=== PATIENT | female | born 1970 | race Caucasian/White ===

== ENCOUNTER 2016-03-10 17:14 | Emergency (ER) | payer SELFPAY ==
[~2016-03-10] VITALS: Ht 162.6 cm; Wt 67.0 kg
[2016-03-10 17:25] VITALS: BP 135/103; PULSE 105; RESP 16; TEMP 98.6; O2SAT 99
[2016-03-10] MEDS ORDERED: IBUP800T23 PO (17:39)
[2016-03-10] MEDS ORDERED: ROBA750T PO (17:39)
[2016-03-10] MEDS ORDERED: ORPHENADRINE INJ 60 MG/2 ML AMP IM ONE (17:45)
[2016-03-10] MEDS ORDERED: KETOROLAC TROMETHAMINE 60 MG/2 ML (IM) VIAL IM ONE (17:45)
--- NOTE | 2016-03-10 17:48 | PD ---
HPI Chief Complaint: Musculoskeletal Complaint Time Seen by Provider: 17:40 Travel History International Travel<30 days: No Contact w/Intl Traveler<30days: No Traveled to known affect area: No History of Present Illness HPI 45-year-old female presents to the emergency room for evaluation of right-sided low back pain for the past 2 days. Patient states she twisted funny and exacerbated her pain. She has chronic low back pain due to arthritis and scoliosis. States pain is constant, dull ache that occasionally becomes a sharp , stabbing pain. It occasionally radiates to the left lower back. No radiation down the lower extremity. States the pain is so severe at times that causes her to have a tension headache. Headache is typical, gradual onset, wrapping around her head. She has been taking ibuprofen for pain without significant relief in symptoms. No saddle anesthesia, loss of bowel or bladder control, or lower extremity paresthesias Denies IV drug use, fevers, and weight loss. PFSH Past Medical History Depression: Yes Diminished Hearing: No Immunizations Current: No Pancreatitis: Yes (HOSPITALIZED LAST MONTH IN ICU AT [facility]) Tetanus Vaccination: > 5 Years Influenza Vaccination: No ?: Not LMP: TUBAL Tubal Ligation: Yes Past Surgical History Section: Yes Social History Alcohol Use: Yes ("ALCOHOLIC") Tobacco Use: Yes (1 PPD) Substance Use: Yes (ETOH ) Allergies-Medications (Allergen,Severity, Reaction): Coded Allergies: No Known Allergies (Unverified , 03/10/16) Reported Meds & Prescriptions Reported Meds & Active Scripts Active Ibuprofen 800 Mg Tab 800 Mg PO Q8H PRN Robaxin (Methocarbamol) 750 Mg Tab 750 Mg PO Q8HR Review of Systems Except as stated in HPI: all other systems reviewed are Neg Physical Exam Narrative GENERAL: Well-nourished, well-developed female in no acute distress. Afebrile. Ambulatory without antalgic gait. SKIN: Warm and dry. HEAD: Normocephalic. EYES: No scleral icterus. No injection or drainage. NECK: Supple, trachea midline. No JVD or lymphadenopathy. CARDIOVASCULAR: Regular rate and rhythm without murmurs, gallops, or rubs. RESPIRATORY: Breath sounds equal bilaterally. No accessory muscle use. BACK: No midline tenderness. No obvious deformity. No CVA tenderness. Mild tenderness to palpation of the right lower paraspinous musculature. 2+ patellar reflexes equal bilaterally. Data Data Last Documented VS Vital Signs Date Time Temp Pulse Resp B/P Pulse Ox O2 Delivery O2 Flow Rate FiO2 03/10/16 17:25 98.6 105 16 135/103 99 Orders Orphenadrine Inj (Norflex Inj) (03/10/16 17:45) Ketorolac Inj (Toradol Inj) (03/10/16 17:45) MDM Medical Decision Making Medical Screen Exam Complete: Yes Emergency Medical Condition: Yes Medical Record Reviewed: Yes Differential Diagnosis Muscle spasm versus strain versus fracture unlikely Narrative Course 45-year-old female with history of chronic back pain due to scoliosis and arthritis presents to the emergency room for evaluation of low back pain for the past 2 days. Patient states she twisted the wrong direction and has had pain since then. Denies any other trauma. Pain is causing a tension headache. Ibuprofen has not been improving symptoms. She is well-appearing. Ambulatory without antalgic gait. No focal neurological deficits. No midline tenderness. No red flag symptoms. No indication for emergent imaging at this time. Eforcse shows 2 prescriptions for Percocet from 2 different providers over the past 22 days. She will be given Toradol and Norflex in the emergency room and discharged with prescriptions for ibuprofen and Robaxin. Told to follow up with the primary care physician or return for worsening symptoms. She understands and agrees to plan. Diagnosis Primary Impression: Low back strain Qualified Code: S39.012A - Low back strain, initial encounter Referrals: Primary Care Physician Patient Instructions: General Instructions, Low Back Strain (ED) Additional Instructions: Rest and drink plenty of fluids. Take Robaxin as directed, as needed for pain. Take ibuprofen with food as directed, as needed for pain. Apply ice to the affected area for 20 minutes at a time, as needed for pain and swelling. Follow-up with a primary care physician. Return to the emergency room for worsening symptoms. Med/Other Pt SpecificInfo: Prescription(s) given Scripts Ibuprofen 800 Mg [id number] Mg PO Q8H PRN (Pain/Inflammation) #21 TAB Ref 0 Prov:Cristian Larios MD 03/10/16 Methocarbamol (Robaxin)750 Mg [id number] Mg PO Q8HR #21 TAB Ref 0 Prov:Cristian Larios MD 03/10/16 Disposition: 01 DISCHARGE HOME Condition: Stable Kenia Kern Mar 10, 2016 17:48
[2016-03-10 18:02] VITALS: BP 139/93
== END 2016-03-10 18:03 | disposition home or self-care (01) ==
LOC: PHEFT 17:14
DX: S39.012A Strain of muscle, fascia and tendon of lower back, initial encounter (principal); X50.1XXA Overexertion from prolonged static or awkward postures, initial encounter
CPT/HCPCS: 96372; 99283; J1885; J2360

== ENCOUNTER 2017-05-06 12:37 | Emergency (ER) | payer SELFPAY ==
[~2017-05-06] VITALS: Ht 162.6 cm; Wt 67.0 kg
[~2017-05-06 12:37] MED LIST: IBUP1TAB7 PO; ROBA750T PO
[2017-05-06 13:15] VITALS: BP 104/57; PULSE 88; RESP 16; TEMP 98.3; O2SAT 98
[2017-05-06] MEDS ORDERED: LORazepam 1 MG TAB PO ONE (14:15)
[2017-05-06] MEDS ORDERED: diphenhydrAMINE HCL 50 MG CAP PO ONE ×2 (14:15→21:30)
--- NOTE | 2017-05-06 14:16 | PD ---
HPI Chief Complaint: Psychiatric Symptoms Time Seen by Provider: 13:31 Travel History International Travel<30 days: No Contact w/Intl Traveler<30days: No Traveled to known affect area: No History of Present Illness HPI 46-year-old female brought in under the stephen act with history of polysubstance abuse. Patient is suicidal and threatening. She is uncooperative. Patient is noted to have a healing abscess to the right posterior shoulder from a "spider bite". Patient denies fever, chills, or other symptoms. She states she uses Percocet and alcohol. She states she has been on Bactrim for 2 days for her abscess. She states it was drained about 3 weeks ago. He continues to have some mild purulent drainage. She denies significant pain. She has no known drug allergies. [facility] Past Medical History Depression: Yes Diminished Hearing: No Medical other: Yes (Pt states she has a history of alcoholism and pancreatitis) Immunizations Current: No Pancreatitis: Yes (HOSPITALIZED LAST MONTH IN ICU AT [facility]) ?: Not Tubal Ligation: Yes Past Surgical History Section: Yes Social History Alcohol Use: Yes (4 years sober, started drinking again today 05/06/17) Tobacco Use: Yes (1 pack/day) Substance Use: Yes (ETOH ) Allergies-Medications (Allergen,Severity, Reaction): Coded Allergies: No Known Allergies (Unverified Allergy, Unknown, 05/06/17) Reported Meds & Prescriptions Reported Meds & Active Scripts Active Ibuprofen 800 Mg Tab 800 Mg PO Q8H PRN Robaxin (Methocarbamol) 750 Mg Tab 750 Mg PO Q8HR Review of Systems ROS Limitations: Uncooperative, Combative Except as stated in HPI: all other systems reviewed are Neg General / Constitutional: No: Fever, Chills Eyes: No: Visual changes HENT: No: Headaches Cardiovascular: No: Chest Pain or Discomfort Respiratory: No: Shortness of Breath Gastrointestinal: No: Abdominal Pain Genitourinary: No: Dysuria Musculoskeletal: No: Pain Skin: Positive Lesions (See history of present illness per), No Rash Neurologic: No: Weakness Psychiatric: No: Depression Endocrine: No: Polydipsia Hematologic/Lymphatic: No: Easy Bruising Physical Exam Exam Limitations: Uncooperative, Combative Narrative GENERAL: Patient appears in no obvious distress per SKIN: Warm and dry. Patient appears to have an old abscess to the right posterior shoulder which appears to be healing slowly with normal granulation tissue noted without significant warmth or erythema noted. There is small amount of purulent drainage noted. HEAD: Atraumatic. Normocephalic. EYES: Pupils equal and round. No scleral icterus. No injection or drainage. ENT: No nasal bleeding or discharge. Mucous membranes pink and moist. Pharynx is clear. Airways patent NECK: Trachea midline. Supple. CARDIOVASCULAR: Regular rate and rhythm. RESPIRATORY: No accessory muscle use. Clear to auscultation. Breath sounds equal bilaterally. MUSCULOSKELETAL: Extremities without clubbing, cyanosis, or edema. No obvious deformities. NEUROLOGICAL: Awake and alert. No obvious cranial nerve deficits. Motor grossly within normal limits. Five out of 5 muscle strength in the arms and legs. Normal speech. PSYCHIATRIC: Appropriate mood and affect; insight and judgment normal. Data Data Last Documented VS Vital Signs Date Time Temp Pulse Resp B/P (MAP) Pulse Ox O2 Delivery O2 Flow Rate FiO2 05/06/17 13:15 98.3 88 16 104/57 (73) 98 Room Air Orders Orders Complete Blood Count With Diff (05/06/17 13:30) Comprehensive Metabolic Panel (05/06/17 13:30) Thyroid Stimulating Hormone (05/06/17 13:30) Urinalysis - C+S If Indicated (05/06/17 13:30) Psych Screen (05/06/17 13:30) Drug Screen, Random Urine (05/06/17 13:30) Alcohol (Ethanol) (05/06/17 13:30) Lipase (05/06/17 13:30) Lorazepam (Ativan) (05/06/17 14:15) Diphenhydramine (Benadryl) (05/06/17 14:15) Sulfamet-Trimeth Ds 800-160 Mg (Bactrim (05/06/17 14:30) Diet Regular Basic (05/06/17 Dinner) Labs Laboratory Tests Test 05/06/17 14:40 05/06/17 17:10 White Blood Count 5.8 TH/MM3 Red Blood Count 4.20 MIL/MM3 Hemoglobin 13.2 GM/DL Hematocrit 38.0 % Mean Corpuscular Volume 90.6 FL Mean Corpuscular Hemoglobin 31.5 PG Mean Corpuscular Hemoglobin Concent 34.8 % Red Cell Distribution Width 13.5 % Platelet Count 185 TH/MM3 Mean Platelet Volume 8.4 FL Neutrophils (%) (Auto) 46.1 % Lymphocytes (%) (Auto) 43.0 % Monocytes (%) (Auto) 8.4 % Eosinophils (%) (Auto) 1.7 % Basophils (%) (Auto) 0.8 % Neutrophils # (Auto) 2.7 TH/MM3 Lymphocytes # (Auto) 2.5 TH/MM3 Monocytes # (Auto) 0.5 TH/MM3 Eosinophils # (Auto) 0.1 TH/MM3 Basophils # (Auto) 0.0 TH/MM3 CBC Comment DIFF FINAL Differential Comment Blood Urea Nitrogen 18 MG/DL Creatinine 0.55 MG/DL Random Glucose 99 MG/DL Total Protein 6.9 GM/DL Albumin 3.5 GM/DL Calcium Level 8.7 MG/DL Alkaline Phosphatase 66 U/L Aspartate Amino Transf (AST/SGOT) 38 U/L Alanine Aminotransferase (ALT/SGPT) 70 U/L Total Bilirubin 0.2 MG/DL Sodium Level 142 MEQ/L Potassium Level 3.1 MEQ/L Chloride Level 108 MEQ/L Carbon Dioxide Level 24.3 MEQ/L Anion Gap 10 MEQ/L Estimat Glomerular Filtration Rate 120 ML/MIN Lipase 53 U/L Thyroid Stimulating Hormone 3rd Gen 0.511 uIU/ML Ethyl Alcohol Level 182 MG/DL [facility] Medical Decision Making Medical Screen Exam Complete: Yes Emergency Medical Condition: Yes Differential Diagnosis Stephen act. Mood disorder. Polysubstance abuse. Suicidal ideation. Narrative Course Patient is medically stable at time of exam. Psychiatric labs ordered per protocol including lipase as the patient has a history of pancreatitis. Patient is given 1 mg lorazepam p.o. as well as 50 mg diphenhydramine p.o. Patient is continued on Bactrim DS twice daily Patient is medically cleared for psychiatric evaluation. Diagnosis Primary Impression: Cellulitis of right upper arm Condition: Stable Damon Giles May 06, 2017 14:16
[2017-05-06] MEDS: SULFAMETHOXAZOLE-TRIMETHOPRIM DS 800-160 MG TAB PO SCH ×2 (14:36→20:59)
[2017-05-06 15:21] LABS: AUTOMATED NEUTROPHIL # 2.7 TH/MM3 (1.8-7.7); BASOPHIL % 0.8 % (0.0-2.0); EOSINOPHIL # 0.1 TH/MM3 (0-0.4); EOSINOPHIL % 1.7 % (0.0-4.0); HEMOGLOBIN 13.2 GM/DL (11.6-15.3); LYMPHOCYTE # 2.5 TH/MM3 (1.0-4.8); MEAN CELL VOLUME 90.6 FL (80.0-100.0); MEAN CORPUSCULAR HEMOGLOBIN 31.5 PG (27.0-34.0); MEAN CORPUSCULAR HGB CONC 34.8 % (32.0-36.0); MEAN PLATELET VOLUME 8.4 FL (7.0-11.0); MONO % 8.4 % (0.0-8.0); MONOCYTE # 0.5 TH/MM3 (0-0.9); NEUT % 46.1 % (16.0-70.0); PLATELET COUNT 185 TH/MM3 (150-450); RED CELL DISTRIBUTION WIDTH 13.5 % (11.6-17.2); WHITE BLOOD COUNT 5.8 TH/MM3 (4.0-11.0)
[2017-05-06 15:52] LABS: ALBUMIN 3.5 GM/DL (3.4-5.0); ALT (GPT) 70 U/L (10-53); AST (GOT) 38 U/L (15-37); BICARBONATE 24.3 MEQ/L (21.0-32.0); BLOOD UREA NITROGEN 18 MG/DL (7-18); CALCIUM 8.7 MG/DL (8.5-10.1); CHLORIDE 108 MEQ/L (98-107); CREATININE 0.55 MG/DL (0.50-1.00); GLOMERULAR FILTRATION RATE 120 ML/MIN (>89); GLUCOSE,RANDOM 99 MG/DL (74-106); SODIUM (NA) 142 MEQ/L (136-145)
[2017-05-06 16:02] LABS: ALKALINE PHOSPHATASE 66 U/L (45-117); TOTAL BILIRUBIN ADULT 0.2 MG/DL (0.2-1.0); TOTAL PROTEIN 6.9 GM/DL (6.4-8.2)
[2017-05-06 17:43] LABS: BILIRUBIN, URINE NEG (NEG); BLOOD, URINE NEG (NEG); GLUCOSE,URINE NEG (NEG); HYALINE CAST, URINE 1 /lpf (RARE); KETONE, URINE NEG (NEG); MUCUS URINE FEW /lpf (OCC); NITRITE,URINE NEG (NEG); SQUAMOUS EPITHELIAL CELL URINE 6 /hpf (0-5); URINE COLOR YELLOW (YELLW/STRAW); URINE LEUKOCYTE ESTERASE NEG (NEG)
[2017-05-06 18:49] VITALS: BP 129/64; PULSE 112; RESP 16; TEMP 98.5; O2SAT 98
[2017-05-06] MEDS ORDERED: ACETAMINOPHEN 325 MG TAB PO ONE (19:30)
[2017-05-06 19:55] VITALS: BP 130/75; PULSE 100; RESP 19; O2SAT 99
[2017-05-07 02:17] VITALS: BP 113/62; PULSE 88; RESP 18; O2SAT 97
[2017-05-07 06:44] VITALS: BP 114/69; PULSE 91; RESP 17; O2SAT 99
[2017-05-07] MEDS ORDERED: IBUPROFEN 600 MG TAB PO ONE (08:30)
[2017-05-07] MEDS: SULFAMETHOXAZOLE-TRIMETHOPRIM DS 800-160 MG TAB PO SCH (08:35)
--- NOTE | 2017-05-07 12:19 | PD ---
History of Present Illness Chief Complaint: Psychiatric Symptoms Time Seen by Provider: 12:00 Travel History International Travel<30 Days: No Contact w/Intl Traveler<30days: No Known affected area: No Legal Status Legal Status: Stephen Act Stephen Act Signed By: Ameya Bravo Stephen Act Comment: Officer Treat - Badge ID #[id number] History of Present Illness: History of Present Illness HPI 46-year-old , single female, with history of alcohol abuse, opiate abuse currently living with her mahi who is brought in under a stephen act initiated by law enforcement. The Stephen act alleges that the patient" stated that she did not get the job she wanted and has nothing left to live for. Subject stated she wants to end it all" she did not make any attempt at harming herself. Upon arrival to the ED she was uncooperative, agitated and threatening. Upon arrival at [facility] she proceeded to urinate on the floor as well as to throw her food against the wall. She was intoxicated upon arrival with a blood alcohol level 182. Her toxicology is positive for barbiturates, benzos, cocaine. She was monitored in secure environment and was allowed to sober up clinically. This morning the patient is clinically sober. Her speech is clear, logical, goal-directed, of normal rate and tone. Her affect is variable and appropriate. She is maintaining basic hygiene. Mood is nearly euthymic. There is no evidence of any hallucinations no delusions and no paranoia. No nelia or hypomania. She admits that she made statements to her mother alluding to her not wanting to live anymore because she was angry at her mother for not doing something that she had asked her to do. She also states" I was drunk when I said that and I was drunk when I acted the way I did yesterday." I don' t want to hurt myself and I don't want to hurt anyone else. She acknowledges that she has a problem with alcohol and substances and shows interest in possibly getting on Vivitrol to help her maintain sobriety. Patient gives verbal, permission to contact her mahi Mandujano at [phone].No answer. He has concerns about her continued use of alcohol and her mood lability when she drinks.. PFSH Past Medical History Depression: Yes Diminished Hearing: No Medical other: Yes (Pt states she has a history of alcoholism and pancreatitis) Immunizations Current: No Pancreatitis: Yes (HOSPITALIZED LAST MONTH IN ICU AT [facility]) ?: Not Tubal Ligation: Yes Past Surgical History Section: Yes Psychiatric History Psychiatric History Hx Psychiatric Treatment: Pt reports remote history of depression. Currently not in treatment History of Inpatient Treatment: No Guns or firearms in home: No Social History Divorce female, born and raised in [place]. Mother of 3 adult children and 1 granddaughter. Currently living with her mahi. Unemployed and has worked in [employer]. Hx Alcohol Use: Yes (4 years sober, started drinking again today 05/06/17) Hx Tobacco Use: Yes (1 pack/day) Hx Substance Use: Yes Substance Use Type: Alcohol, Other Other Substances Used: Pt admits to injecting "Roxys a couple of days ago" Hx of Substance Use Treatment: Yes Family Psychiatric History Negative Allergies-Medications (Allergen,Severity, Reaction): Coded Allergies: No Known Allergies (Unverified Allergy, Unknown, 05/06/17) Reported Meds & Prescriptions Reported Meds & Active Scripts Active Ibuprofen 800 Mg Tab 800 Mg PO Q8H PRN Robaxin (Methocarbamol) 750 Mg Tab 750 Mg PO Q8HR Review of Systems Psychiatric: DENIES: Anxiety, Confusion, Mood changes, Depression, Hallucinations, Agitation, Suicidal Ideation, Homicidal Ideation, Delusions Except as stated in HPI: all other systems reviewed are Neg Mental Status Examination Appearance: Appropriate (in hospital attire. Maintaining basic hygiene) Consciousness: Alert Orientation: x4 Motor Activity: Normal gait Speech: Unremarkable Language: Adequate Fund of Knowledge: Adequate Attention and Concentration: Adequate Memory: Unremarkable Mood: Appropriate Affect: Appropriate Thought Process & Associations: Intact, Logical, Goal directed Thought Content: Appropriate Hallucination Type: None Delusion Type: None Suicidal Ideation: No Suicidal Plan: No Suicidal Intention: No Homicidal Ideation: No Homicidal Plan: No Homicidal Intention: No Insight: Fair Judgment: Adequate MDM Medical Decision Making Medical Record Reviewed: Yes Assessment/Plan 46-year-old , single female, with history of alcohol abuse, opiate abuse currently living with her mahi who is brought in under a stephen act initiated by law enforcement. The Stephen act alleges that the patient" stated that she did not get the job she wanted and has nothing left to live for. Subject stated she wants to end it all" she did not make any attempt at harming herself. Upon arrival to the ED she was uncooperative, agitated and threatening. Upon arrival at [facility] she proceeded to urinate on the floor as well as to throw her food against the wall. She was intoxicated upon arrival with a blood alcohol level 182. Her toxicology is positive for barbiturates, benzos, cocaine. She was monitored in secure environment and was allowed to sober up clinically. Patient wants clinically sober demonstrated no further behavioral concerns. She is not psychotic and not manic. Denies any suicidal or homicidal ideation, intent or plan. She is future oriented. Patient wants treatment for her alcohol dependence and showed interest in seeking treatment with Vivitrol. She will be provided with that information. She is also advised to follow-up with Baldemar Kerr. The Stephen act is lifted as patient is not presenting any evidence of unstable mental illness as defined under the Stephen act. Her mood changes can be attributed to her continued use of alcohol. Stephen act is lifted. Psychiatrically clear for discharge from the ED. Orders Orders Complete Blood Count With Diff (05/06/17 13:30) Comprehensive Metabolic Panel (05/06/17 13:30) Thyroid Stimulating Hormone (05/06/17 13:30) Urinalysis - C+S If Indicated (05/06/17 13:30) Psych Screen (05/06/17 13:30) Drug Screen, Random Urine (05/06/17 13:30) Alcohol (Ethanol) (05/06/17 13:30) Lipase (05/06/17 13:30) Lorazepam (Ativan) (05/06/17 14:15) Diphenhydramine (Benadryl) (05/06/17 14:15) Sulfamet-Trimeth Ds 800-160 Mg (Bactrim (05/06/17 14:30) Diet Regular Basic (05/06/17 Dinner) Acetaminophen (Tylenol) (05/06/17 19:30) Diphenhydramine (Benadryl) (05/06/17 21:30) Diet Regular Basic (05/07/17 Breakfast) Ibuprofen (Motrin) (05/07/17 08:30) Diet Regular Basic (05/07/17 Lunch) Results Vital Signs Date Time Temp Pulse Resp B/P (MAP) Pulse Ox O2 Delivery O2 Flow Rate FiO2 05/07/17 06:44 91 17 114/69 (84) 99 Room Air 05/07/17 02:17 88 18 113/62 (79) 97 Room Air 05/06/17 19:55 100 19 130/75 (93) 99 Room Air 05/06/17 18:49 98.5 112 16 129/64 (85) 98 Room Air 05/06/17 13:15 98.3 88 16 104/57 (73) 98 Room Air Laboratory Tests Test 05/06/17 14:40 05/06/17 17:10 White Blood Count 5.8 Red Blood Count 4.20 Hemoglobin 13.2 Hematocrit 38.0 Mean Corpuscular Volume 90.6 Mean Corpuscular Hemoglobin 31.5 Mean Corpuscular Hemoglobin Concent 34.8 Red Cell Distribution Width 13.5 Platelet Count 185 Mean Platelet Volume 8.4 Neutrophils (%) (Auto) 46.1 Lymphocytes (%) (Auto) 43.0 Monocytes (%) (Auto) 8.4 Eosinophils (%) (Auto) 1.7 Basophils (%) (Auto) 0.8 Neutrophils # (Auto) 2.7 Lymphocytes # (Auto) 2.5 Monocytes # (Auto) 0.5 Eosinophils # (Auto) 0.1 Basophils # (Auto) 0.0 CBC Comment DIFF FINAL Differential Comment Blood Urea Nitrogen 18 Creatinine 0.55 Random Glucose 99 Total Protein 6.9 Albumin 3.5 Calcium Level 8.7 Alkaline Phosphatase 66 Aspartate Amino Transf (AST/SGOT) 38 Alanine Aminotransferase (ALT/SGPT) 70 Total Bilirubin 0.2 Sodium Level 142 Potassium Level 3.1 Chloride Level 108 Carbon Dioxide Level 24.3 Anion Gap 10 Estimat Glomerular Filtration Rate 120 Lipase 53 Thyroid Stimulating Hormone 3rd Gen 0.511 Ethyl Alcohol Level 182 Urine Color YELLOW Urine Turbidity HAZY Urine pH 6.0 Urine Specific [place] 1.011 Urine Protein NEG Urine Glucose (UA) NEG Urine Ketones NEG Urine Occult Blood NEG Urine Nitrite NEG Urine Bilirubin NEG Urine Urobilinogen LESS THAN 2.0 Urine Leukocyte Esterase NEG Urine WBC 3 Urine Squamous Epithelial Cells 6 Urine Hyaline Casts 1 Urine Mucus FEW Microscopic Urinalysis Comment CULT NOT INDICATED Urine Opiates Screen NEG Urine Barbiturates Screen POS Urine Amphetamines Screen NEG Urine Benzodiazepines Screen POS Urine Cocaine Screen POS Urine Cannabinoids Screen NEG Diagnosis Primary Impression: Cellulitis of right upper arm Additional Impressions: Alcohol dependence with intoxication Alcohol-induced mood disorder Psychiatrically Cleared: Yes Med/ Other Pt Specific Info: No Meds Exist/No RX given Disposition: 01 DISCHARGE HOME Condition: Stable Problem Qualifiers Additional Impressions: Alcohol dependence with intoxication Qualified Codes: F10.220 - Alcohol dependence with intoxication, uncomplicated Zoey Fragoso [facility] May 07, 2017 12:19
--- NOTE | 2017-05-07 12:31 | PD ---
Physical Exam Date Seen by Provider: May 07, 2017 Time Seen by Provider: 12:30 Narrative 46-year-old female previously cleared for psychiatric evaluation has been seen by psychiatric staff and deemed stable for discharge at this time. Patient remains medically stable at this time. Follow-up will be based on psychiatric note. Data Data Last Documented VS Vital Signs Date Time Temp Pulse Resp B/P (MAP) Pulse Ox O2 Delivery O2 Flow Rate FiO2 05/07/17 06:44 91 17 114/69 (84) 99 Room Air 05/06/17 18:49 98.5 Orders Orders Complete Blood Count With Diff (05/06/17 13:30) Comprehensive Metabolic Panel (05/06/17 13:30) Thyroid Stimulating Hormone (05/06/17 13:30) Urinalysis - C+S If Indicated (05/06/17 13:30) Psych Screen (05/06/17 13:30) Drug Screen, Random Urine (05/06/17 13:30) Alcohol (Ethanol) (05/06/17 13:30) Lipase (05/06/17 13:30) Lorazepam (Ativan) (05/06/17 14:15) Diphenhydramine (Benadryl) (05/06/17 14:15) Sulfamet-Trimeth Ds 800-160 Mg (Bactrim (05/06/17 14:30) Diet Regular Basic (05/06/17 Dinner) Acetaminophen (Tylenol) (05/06/17 19:30) Diphenhydramine (Benadryl) (05/06/17 21:30) Diet Regular Basic (05/07/17 Breakfast) Ibuprofen (Motrin) (05/07/17 08:30) Diet Regular Basic (05/07/17 Lunch) Labs Laboratory Tests Test 05/06/17 14:40 05/06/17 17:10 White Blood Count 5.8 TH/MM3 Red Blood Count 4.20 MIL/MM3 Hemoglobin 13.2 GM/DL Hematocrit 38.0 % Mean Corpuscular Volume 90.6 FL Mean Corpuscular Hemoglobin 31.5 PG Mean Corpuscular Hemoglobin Concent 34.8 % Red Cell Distribution Width 13.5 % Platelet Count 185 TH/MM3 Mean Platelet Volume 8.4 FL Neutrophils (%) (Auto) 46.1 % Lymphocytes (%) (Auto) 43.0 % Monocytes (%) (Auto) 8.4 % Eosinophils (%) (Auto) 1.7 % Basophils (%) (Auto) 0.8 % Neutrophils # (Auto) 2.7 TH/MM3 Lymphocytes # (Auto) 2.5 TH/MM3 Monocytes # (Auto) 0.5 TH/MM3 Eosinophils # (Auto) 0.1 TH/MM3 Basophils # (Auto) 0.0 TH/MM3 CBC Comment DIFF FINAL Differential Comment Blood Urea Nitrogen 18 MG/DL Creatinine 0.55 MG/DL Random Glucose 99 MG/DL Total Protein 6.9 GM/DL Albumin 3.5 GM/DL Calcium Level 8.7 MG/DL Alkaline Phosphatase 66 U/L Aspartate Amino Transf (AST/SGOT) 38 U/L Alanine Aminotransferase (ALT/SGPT) 70 U/L Total Bilirubin 0.2 MG/DL Sodium Level 142 MEQ/L Potassium Level 3.1 MEQ/L Chloride Level 108 MEQ/L Carbon Dioxide Level 24.3 MEQ/L Anion Gap 10 MEQ/L Estimat Glomerular Filtration Rate 120 ML/MIN Lipase 53 U/L Thyroid Stimulating Hormone 3rd Gen 0.511 uIU/ML Ethyl Alcohol Level 182 MG/DL Urine Color YELLOW Urine Turbidity HAZY Urine pH 6.0 Urine Specific [place] 1.011 Urine Protein NEG mg/dL Urine Glucose (UA) NEG mg/dL Urine Ketones NEG mg/dL Urine Occult Blood NEG Urine Nitrite NEG Urine Bilirubin NEG Urine Urobilinogen LESS THAN 2.0 MG/DL Urine Leukocyte Esterase NEG Urine WBC 3 /hpf Urine Squamous Epithelial Cells 6 /hpf Urine Hyaline Casts 1 /lpf Urine Mucus FEW /lpf Microscopic Urinalysis Comment CULT NOT INDICATED Urine Opiates Screen NEG Urine Barbiturates Screen POS Urine Amphetamines Screen NEG Urine Benzodiazepines Screen POS Urine Cocaine Screen POS Urine Cannabinoids Screen NEG [facility] Medical Record Reviewed: Yes Supervised Visit with ARRON: Yes Narrative Course 46-year-old female previously cleared for psychiatric evaluation has been seen by psychiatric staff and deemed stable for discharge at this time. Patient remains medically stable at this time. Patient is to finish the Bactrim that she has previously been prescribed. Follow-up will be based on psychiatric note. Diagnosis Primary Impression: Cellulitis of right upper arm Referrals: [facility] Patient Instructions: General Instructions Disposition: DISCHARGE HOME Condition: Stable Damon Giles May 07, 2017 12:31
== END 2017-05-07 13:00 | disposition home or self-care (01) ==
LOC: NEPJ 12:37
DX: L03.113 Cellulitis of right upper limb (principal); F11.10 Opioid abuse, uncomplicated; F19.10 Other psychoactive substance abuse, uncomplicated; F32.9 Major depressive disorder, single episode, unspecified; F10.229 Alcohol dependence with intoxication, unspecified; Y90.6 Blood alcohol level of 120-199 mg/100 ml; Z79.899 Other long term (current) drug therapy
CPT/HCPCS: 80053; 80307; 81001; 83690; 84443; 85025; 99284; Q0163